=== PATIENT | male | born 1990 | race Two or more races ===

== ENCOUNTER 2019-10-07 19:59 | Emergency (ER) | payer MEDICAID ==
[~2019-10-07] VITALS: Ht 190.5 cm; Wt 86.2 kg
[2019-10-07 20:19] VITALS: BP 121/84
== END 2019-10-07 20:21 ==
LOC: ER 20:02
DX: F11.10 Opioid abuse, uncomplicated (principal); J45.909 Unspecified asthma, uncomplicated; F17.210 Nicotine dependence, cigarettes, uncomplicated